=== PATIENT | female | born 1985 | race American Indian/Alaskan Native ===

== ENCOUNTER 2017-01-06 13:21 | Inpatient (IN) | payer MEDICAID ==
[2017-01-06] MEDS ORDERED: STADOL IV PRN (13:30)
[2017-01-06] MEDS ORDERED: BRETHINE SUB-Q PRN (13:30)
[2017-01-06] MEDS ORDERED: BRETHINE IVP PRN (13:30)
[2017-01-06] MEDS ORDERED: MINERAL OIL PO PRN (13:30)
[2017-01-06] MEDS ORDERED: ePHEDrine SULFATE IV PRN ×2 (13:30→17:23)
[2017-01-06] MEDS ORDERED: SUBLIMAZE IV PRN (13:30)
[2017-01-06] MEDS ORDERED: LACTATED RINGERS 1,000 ML IV SCH (14:00)
[2017-01-06 14:20] LABS: Hematocrit 36.5 % (30.3-42.9); Hemoglobin 11.8 gm/dl (10.1-14.3); Mean Corpuscular HGB Conc 32 % (30-34); Mean Corpuscular Hemoglobin 27 pg (28-32); Mean Corpuscular Volume 84 fl (79-97); Platelet Count 137 K/mm3 (140-440); Red Blood Count 4.33 M/mm3 (3.65-5.03); Red Cell Distribution Width 14.7 % (13.2-15.2); White Blood Count 10.4 K/mm3 (4.5-11.0)
[2017-01-06] MEDS ORDERED: PITOCin/NS 20 UNIT/1000ML DRIP 20 UNITS/1,000 ML BAG IV SCH (16:00)
[2017-01-06] MEDS ORDERED: PITOCin/NS 30 UNIT/500ML 30 UNITS/500 ML BAG IV SCH ×2 (16:00)
[2017-01-06] MEDS ORDERED: NARCAN 2 MG/2 ML IV PRN (17:16)
--- NOTE | 2017-01-06 17:16 | Anesthesia Consultation ---
Anesthesia Consult and Med Hx Date of service: 01/06/17 - Airway Anesthetic Teeth Evaluation: Good ROM Head & Neck: Adequate Mental/Hyoid Distance: Adequate Mallampati Class: Class II Intubation Access Assessment: Good - Pulmonary Exam CTA: Yes - Cardiac Exam Cardiac Exam: No Murmur - Pre-Operative Health Status ASA Pre-Surgery Classification: ASA2 Proposed Anesthetic Plan: Epidural - Pulmonary Hx Asthma: No COPD: No Hx Pneumonia: No - Cardiovascular System Hx Hypertension: No - Central Nervous System Hx Seizures: No Hx Psychiatric Problems: No - Endocrine Hx Renal Disease: No Hx End Stage Renal Disease: No Hx Hypothyroidism: No Hx Hyperthyroidism: No - Hematic Hx Anemia: No Hx Sickle Cell Disease: No - Other Systems Hx Alcohol Use: No
[2017-01-06] MEDS ORDERED: fentaNYL-BUPIV 2 MCG/ML-0.125% 200 MCG/100 ML BAG EPIDURAL SCH (18:00)
--- NOTE | 2017-01-06 19:06 | History and Physical Report ---
History of Present Illness Date of examination: 01/06/17 Date of admission: 01/06/17 13:56 Chief complaint: rupture of membranes History of present illness: Pt is a 31 year old HETAL 01/21/17 at 37w6d who presents with spontaneous rupture of membranes at 1230 pm today. She reports irregular contractions and denies vaginal bleeding. She has had care at [facility] since 11 wks complicated by obesity, poorly controlled gestational diabetes on glyburide 5 mg BID,and elevated Down Syndrome risk with normal NIPT. She is GBS negative. Past History Past Medical History: diabetes (gestational diabetes ) Past Surgical History: cholecystectomy Family/Genetic History: none Social history: no significant social history, - Obstetrical History Expected Date of Delivery: 01/21/17 Actual Gestation: 37 Week(s) 6 Day(s) : 2 Para: 1 Hx # Term Pregnancies: 1 Number of Pregnancies: 0 Spontaneous Abortions: 0 Induced : 0 Number of Living Children: 1 Medications and Allergies Allergies Allergy/AdvReac Type Severity Reaction Status Date / Time No Known Allergies Allergy Unverified 01/06/17 15:12 Active Meds: Active Medications Butorphanol Tartrate (Stadol) 2 mg IV Q2H PRN PRN Reason: Pain , Severe (7-10) Ephedrine Sulfate (Ephedrine Sulfate) 10 mg IV Q2M PRN PRN Reason: Hypotension Stop: 01/07/17 13:29 Fentanyl (Sublimaze) 100 mcg IV Q2H PRN PRN Reason: Labor Pain Lactated Ringer's (Lactated Ringers) 1,000 mls @ 125 mls/hr IV DIRECT DOUGLAS Oxytocin/Sodium Chloride (Pitocin/Ns 20 Unit/1000ml Drip) 20 units in 1,000 mls @ 125 mls/hr IV DIRECT DOUGLAS Oxytocin/Sodium Chloride (Pitocin/Ns 30 Unit/500ml) 30 units in 500 mls @ 0 mls /hr IV TITR DOUGLAS PRN Reason: Protocol Oxytocin/Sodium Chloride (Pitocin/Ns 30 Unit/500ml) 30 units in 500 mls @ 1 mls /hr IV TITR DOUGLAS; 1 MILLIUNITS/MIN PRN Reason: Protocol Last Titration: 01/06/17 18:30 Dose: 16 milliunits/min, 16 mls/hr Fentanyl/Bupivacaine/Sodium Chlor (Fentanyl-Bupiv 2 Mcg/Ml-0.125%) 200 mcg in 100 mls @ 12 mls/hr EPIDURAL TITR DOUGLAS PRN Reason: Protocol Mineral Oil (Mineral Oil) 30 ml PO QHS PRN PRN Reason: Constipation Review of Systems All systems: negative - Vital Signs Vital signs: Vital Signs Pulse BP 93 H 115/72 01/06/17 13:45 01/06/17 13:45 Temp Pulse Resp BP Pulse Ox 97.8 F 88 18 128/58 100 01/06/17 15:14 01/06/17 18:59 01/06/17 15:14 01/06/17 18:55 01/06/17 18:59 - Physical Exam Breasts: Positive: deferred Cardiovascular: Regular rate Abdomen: Positive: soft (obese, gravid ). Negative: tenderness Uterus: Positive: enlarged (gravid ) Extremities: Positive: normal - Obstetrical FHR: category 2 Uterine Contraction Monitor Mode: External Cervical Dilatation: 10 Cervical Effacement Percentage: 100 station: -1 Uterine Contraction Pattern: Irregular Uterine Tone Measurement Phase: Resting Uterine Contraction Intensity: Moderate Results Result Diagrams: 01/06/17 13:56 Abnormal lab results 01/06/17 Range/Units 13:56 MCH 27 L (28-32) pg Plt Count 137 L (140-440) K/mm3 All other labs normal. Assessment and Plan A: IUP at 37w6d Gestational Diabetes A2, poorly controlled PROM Second stage labor Thrombocytopenia Obesity GBS negative P: Admit to labor and delivery. Accuchek q 1 hr Continue pitocin augmentation. Closely monitor maternal and status.
--- NOTE | 2017-01-06 20:35 | Procedure Note ---
OB Delivery Note - Delivery Date of Delivery: 01/06/17 Surgeon: BELLA ZEPEDA Estimated blood loss: 300cc - Vaginal Delivery presentation: vertex Delivery position: OA Intrapartum events: PROM->1hr before delivery, decreased FHT variability, mult.variable deceleratio Delivery induction: oxytocin Delivery augmentation: pitocin Delivery monitor: external FHT, external uterine Route of delivery: Delivery placenta: spontaneous Delivery cord: 3 umbilical vessels Episiotomy: none Delivery laceration: none Anesthesia: epidural Delivery comments: She progressed to complete/complete/+2 and patient delivered a viable female via over intact perineum under epidural anesthesia. Head delivered in the ABRAHAM position. Loose nuchal cord was reduced 1. Shoulders delivered in Mari position with suprapubic pressure due to poor maternal pushing effort. Body cord 1. placed on maternal abdomen and bulb suctioned. Cord clamped and cut. Cord blood collected. Placenta delivered spontaneously ( 3 vessel cord, intact). Vagina and perineum explored. No lacerations noted. Estimated blood loss 300 mL. - A at 1 minute: 8 at 5 minutes: 9 Gender: Female (3818g (8lb 7 oz))
[2017-01-07] MEDS ORDERED: BENADRYL PO PRN (02:38)
[2017-01-07] MEDS ORDERED: DULCOLAX PR PRN (02:38)
[2017-01-07] MEDS ORDERED: TYLENOL PO PRN (02:38)
[2017-01-07] MEDS ORDERED: TUCKS PAD TP PRN (02:38)
[2017-01-07] MEDS ORDERED: PITOCin/NS 20 UNIT/1000ML DRIP 20 UNIT/1,000 ML BAG IV SCH (02:38)
[2017-01-07] MEDS ORDERED: MILK OF MAGNESIA PO PRN (02:38)
[2017-01-07] MEDS ORDERED: PHENERGAN PR PRN (02:38)
[2017-01-07] MEDS ORDERED: NORCO 5/325 PO PRN (02:38)
[2017-01-07] MEDS ORDERED: ZOFRAN IV PRN (02:38)
[2017-01-07] MEDS ORDERED: SODIUM CHLORIDE FLUSH SYRINGE 10 ML IV PRN (02:38)
[2017-01-07] MEDS ORDERED: DERMOPLAST TP PRN (02:38)
[2017-01-07] MEDS ORDERED: LANSINOH TP PRN (02:38)
[2017-01-07] MEDS ORDERED: PHENERGAN PO PRN (02:38)
[2017-01-07] MEDS: MOTRIN PO SCH ×3 (05:38→21:15)
[2017-01-07 07:56] LABS: Hematocrit 29.1 % (30.3-42.9); Hemoglobin 9.3 gm/dl (10.1-14.3)
--- NOTE | 2017-01-07 08:21 | Progress Note ---
Assessment and Plan OL VSS AF PP H/H: 9.3/29.1 Random BD WNL A: Stable PP Day 1 Anemia Gestational Diabetes P: Iron as ordered Continue PP orders Subjective - Subjective Date of service: 01/07/17 Patient reports: appetite normal, voiding normally, pain well controlled, flatus , ambulating normally : doing well Objective - Vital Signs Latest vital signs: Vital Signs Temp Pulse Pulse Resp BP BP Pulse Ox 01/07/17 05:20 98 F 70 22 120/65 01/07/17 00:35 98.4 F 98 H 20 110/52 01/06/17 22:10 106 H 114/56 01/06/17 21:56 110 H 124/69 01/06/17 21:40 100 H 107/51 01/06/17 21:25 90 129/58 01/06/17 21:10 81 121/60 01/06/17 20:55 93 H 124/59 01/06/17 20:40 100 H 115/77 01/06/17 20:29 101 H 98 01/06/17 20:28 104 H 90 01/06/17 20:25 94 H 113/55 01/06/17 20:24 90 98 01/06/17 20:19 87 98 01/06/17 20:14 93 H 99 01/06/17 20:12 130 H 109/58 01/06/17 20:09 149 H 99 01/06/17 20:04 122 H 100 01/06/17 19:55 88 126/75 01/06/17 19:49 110 H 100 01/06/17 19:44 109 H 100 01/06/17 19:43 104 H 183/94 69 L 01/06/17 19:39 109 H 100 01/06/17 19:34 99 H 100 01/06/17 19:29 100 H 99 01/06/17 19:25 100 H 129/65 01/06/17 19:24 100 H 100 01/06/17 19:19 92 H 100 01/06/17 19:14 92 H 99 01/06/17 19:10 90 125/58 01/06/17 19:09 89 100 01/06/17 19:04 97 H 100 01/06/17 18:59 88 100 01/06/17 18:55 100 H 128/58 01/06/17 18:54 89 100 01/06/17 18:49 105 H 100 01/06/17 18:44 89 92 01/06/17 18:41 83 130/97 01/06/17 18:38 79 100 01/06/17 18:33 81 100 01/06/17 18:28 84 100 01/06/17 18:25 81 103/50 01/06/17 18:23 77 100 01/06/17 18:18 85 100 01/06/17 18:13 79 100 01/06/17 18:11 105 H 108/51 01/06/17 18:08 77 100 01/06/17 18:03 86 100 01/06/17 17:58 82 100 01/06/17 17:55 78 103/53 01/06/17 17:53 94 H 100 01/06/17 17:48 90 100 01/06/17 17:43 90 100 01/06/17 17:40 85 105/53 01/06/17 17:38 84 100 01/06/17 17:33 80 100 01/06/17 17:28 103 H 100 01/06/17 17:25 98 H 105/50 01/06/17 17:23 102 H 100 01/06/17 17:18 93 H 99 01/06/17 17:13 84 99 01/06/17 17:11 93 H 102/52 01/06/17 17:08 104 H 99 01/06/17 17:03 119 H 100 01/06/17 17:02 113 H 127/58 01/06/17 17:01 79 91 01/06/17 16:58 98 H 100 01/06/17 16:53 83 100 01/06/17 16:50 83 128/58 01/06/17 16:48 83 99 01/06/17 15:14 97.8 F 18 01/06/17 14:41 88 111/64 01/06/17 13:45 93 H 115/72 Intake and Output 01/06/17 01/07/17 01/07/17 22:59 06:59 14:59 Intake Total 250 Output Total 500 250 Balance -500 0 Intake: IV 250 PITOCin/NS 20 UNIT/1000ML 250 DRIP 20 units In 1,000 ml @ 125 mls/hr IV DIRECT DOUGLAS Rx#:[id number] Output: Urine 500 250 Indwelling Catheter 500 250 Other: Total, Output Amount 500 250 Weight 85.729 kg Estimated Blood Loss 300 - Exam Lungs: Present: Normal air movement Abdomen: Present: normal appearance, soft, normal bowel sounds. Absent: distention, tenderness Vulva: both: normal Uterus: Present: normal, firm, fundal height below umbilicus. Absent: bogginess , tenderness Extremities: Present: normal, edema - Labs Labs: Abnormal lab results 01/06/17 01/06/17 01/07/17 Range/Units 13:56 19:19 06:11 Hgb (10.1-14.3) gm/dl Hct (30.3-42.9) % MCH 27 L (28-32) pg Plt Count 137 L (140-440) K/mm3 POC Glucose 46 L 129 H (70-105) 01/07/17 Range/Units 07:40 Hgb 9.3 L (10.1-14.3) gm/dl Hct 29.1 L D (30.3-42.9) % MCH (28-32) pg Plt Count (140-440) K/mm3 POC Glucose (70-105)
[2017-01-07] MEDS: FEOSOL PO SCH ×2 (15:43→21:15)
[2017-01-07] MEDS: PRENATAL VITAMIN PO SCH (15:45)
--- NOTE | 2017-01-07 17:06 | Progress Note ---
Subjective Date of service: 01/07/17 Interval history: 1st day after normal vaginal delivery Patient is in the bed, relatively comfortable. Pain is mostly controlled with pain meds. No nausea or vomiting. Ambulated well. No residual neurological deficit. No anesthesia complications Objective - Constitutional Vitals: Vital Signs - 12hr 01/07/17 01/07/17 01/07/17 05:20 08:38 17:05 Temperature 98 F 97.8 F 98.1 F Pulse Rate [ 70 88 84 Left] Respiratory 22 18 20 Rate Blood Pressure 120/65 108/64 119/69 [Right Arm] - Labs CBC & Chem 7: 01/07/17 07:40 Labs: Abnormal lab results 01/06/17 01/07/17 01/07/17 Range/Units 19:19 06:11 07:40 Hgb 9.3 L (10.1-14.3) gm/dl Hct 29.1 L D (30.3-42.9) % POC Glucose 46 L 129 H (70-105)
[2017-01-07] MEDS ORDERED: M-M-R II VACCINE SUB-Q ONE (20:37)
[2017-01-08] MEDS ORDERED: BOOSTRIX IM ONE (06:00)
--- NOTE | 2017-01-08 08:35 | Discharge Summary ---
Providers - Providers Date of Admission: 01/06/17 13:56 Date of discharge: 01/08/17 Attending physician: BELLA ZEPEDA 01/07/17 02:38 Consult to Retail Financial Analyst [CONS] Routine Reason For Exam: assistance with , SNS Primary care physician: BELLA ZEPEDA Hospitalization Reason for admission: active labor Delivery: Episiotomy: none Laceration: none Incision: normal, dry, intact Other procedures: none complications: none Discharge diagnosis: IUP at term delivered baby: female Condition at discharge: Good Disposition: DISCHARGED TO HOME OR SELFCARE Plan - Provider Discharge Summary Activity: routine, no sex for 6 weeks, no heavy lifting 4 weeks, no strenuous exercise Diet: routine Instructions: routine (Anemia GDM bottle feeding desires tubal ligation) Additional instructions: [] Smoking cessation referral if applicable(refer to patient education folder for contact #) [] Refer to [facility] Booklet Call your doctor immediately for: * Fever > 100.5 * Heavy vaginal bleeding ( >1 pad per hour) * Severe persistent headache * Shortness of breath * Reddened, hot, painful area to leg or breast * Drainage or odor from incision. * Keep incision clean and dry at all times and follow doctor's instructions regarding bathing/showering - Follow up plan Follow up: BELLA ZEPEDA MD [Primary Care Provider] - 7 Days
--- NOTE | 2017-01-08 08:38 | Progress Note ---
Assessment and Plan A/P PPD#2 s/P H/H 9.9/29.1 on iron BID AB+ no rhogam indicated tubal for contraception desires female f/u in 4 weeks D/C home with precautions and instructions Subjective - Subjective Date of service: 01/08/17 Principal diagnosis: PPD#2 Patient reports: appetite normal, voiding normally, pain well controlled, flatus , bowel movement, ambulating normally [place]: doing well, bottle feeding Objective - Vital Signs Latest vital signs: Vital Signs Temp Pulse Resp BP 01/08/17 00:00 98.6 F 76 20 122/76 01/07/17 17:05 98.1 F 84 20 119/69 01/07/17 16:42 20 01/07/17 08:38 97.8 F 88 18 108/64 Intake and Output 01/07/17 01/08/17 01/08/17 22:59 06:59 14:59 Intake Total 600 360 Balance 600 360 Intake: Oral 600 360 Other: Total, Intake Amount 240 120 # Voids Void 1 1 - Exam Breasts: Present: normal Cardiovascular: Present: Regular rate, Normal S1, Normal S2 Lungs: Present: Clear to auscultation, Normal air movement Abdomen: Present: normal appearance, soft, normal bowel sounds. Absent: distention, tenderness Vulva: both: normal Uterus: Present: normal, firm, fundal height below umbilicus (3cm below) Extremities: Present: normal Deep Tendon Reflex Grade: Normal +2 Incision: Present: normal, dry, intact
[2017-01-08] MEDS: PRENATAL VITAMIN PO SCH (10:15)
[2017-01-08] MEDS: FEOSOL PO SCH (10:15)
[2017-01-08] MEDS: MOTRIN PO SCH (10:41)
[2017-01-08 13:16] VITALS: BP 126/74
== END 2017-01-08 13:20 | disposition home or self-care (01) | DRG 775 ==
LOC: TRG 13:21 → LD 13:56 → OB 23:05
PROVIDERS: ADMIT Obstetrics & Gynecology; ATTEND Obstetrics & Gynecology
PROC: 10E0XZZ Delivery of Products of Conception, External Approach (ICD-10-PCS; principal; 2017-01-06)
PROC: 3E033VJ Introduction of Other Hormone into Peripheral Vein, Percutaneous Approach (ICD-10-PCS; 2017-01-06)
PROC: 3E0S3CZ (ICD-10-PCS; 2017-01-06)
PROC: 00HU33Z Insertion of Infusion Device into Spinal Canal, Percutaneous Approach (ICD-10-PCS; 2017-01-06)
DX: O42.02 Full-term premature rupture of membranes, onset of labor within 24 hours of rupture (principal); O99.12 Other diseases of the blood and blood-forming organs and certain disorders involving the immune mechanism complicating childbirth; O24.429 Gestational diabetes mellitus in childbirth, unspecified control; Z37.0 Single live birth; Z3A.37 37 weeks gestation of pregnancy; O99.214 Obesity complicating childbirth; E66.9 Obesity, unspecified; Z68.33 Body mass index [BMI] 33.0-33.9, adult; D69.6 Thrombocytopenia, unspecified; O99.02 Anemia complicating childbirth; D64.9 Anemia, unspecified; Z90.49 Acquired absence of other specified parts of digestive tract; O76 Abnormality in fetal heart rate and rhythm complicating labor and delivery; O69.81X0 Labor and delivery complicated by cord around neck, without compression, not applicable or unspecified
CPT/HCPCS: 36415; 82962; 85014; 85018; 85027; 86850; 86900; 86901; 88307; J2590; J7120

== ENCOUNTER 2017-02-25 05:45 | Day surgery (SDC) | payer MEDICAID ==
[2017-02-25] MEDS ORDERED: PEPCID PO NR (06:00)
[2017-02-25] MEDS ORDERED: NACL 0.9% 1000 ML 1,000 ML IV SCH (06:00)
[2017-02-25] MEDS ORDERED: VERSED IV NR (06:00)
[2017-02-25] MEDS ORDERED: NACL BACTERIOSTATIC INFILTRATI ONE (06:21)
--- NOTE | 2017-02-25 06:39 | Anesthesia Day of Surgery ---
Anesthesia Day of Surgery - Day of Surgery Patient Examined: Yes Patient H&P Reviewed: Yes Patient is NPO: Yes
--- NOTE | 2017-02-25 06:39 | Anesthesia Consultation ---
Anesthesia Consult and Med Hx Date of service: 02/25/17 - Airway Anesthetic Teeth Evaluation: Good ROM Head & Neck: Adequate Mental/Hyoid Distance: Adequate Mallampati Class: Class I Intubation Access Assessment: Good - Pulmonary Exam CTA: Yes - Cardiac Exam Cardiac Exam: RRR - Pre-Operative Health Status ASA Pre-Surgery Classification: ASA1 Proposed Anesthetic Plan: General - Pulmonary Hx Asthma: No COPD: No Hx Pneumonia: No - Cardiovascular System Hx Hypertension: No - Central Nervous System Hx Seizures: No Hx Psychiatric Problems: No - Endocrine Hx Renal Disease: No Hx End Stage Renal Disease: No Hx Hypothyroidism: No Hx Hyperthyroidism: No - Hematic Hx Anemia: No Hx Sickle Cell Disease: No - Other Systems Hx Alcohol Use: Yes (occas) Hx Cancer: No
[2017-02-25] MEDS ORDERED: ZOFRAN IV PRN (06:58)
[2017-02-25] MEDS ORDERED: NORCO 5/325 PO PRN (06:58)
[2017-02-25] MEDS ORDERED: DECADRON ONE (06:59)
[2017-02-25] MEDS ORDERED: XYLOCAINE MPF 2% ONE (06:59)
[2017-02-25] MEDS ORDERED: ZEMURON IV ONE (06:59)
[2017-02-25] MEDS ORDERED: DIPRIVAN 10 MG/ML IV ONE (06:59)
[2017-02-25] MEDS ORDERED: MARCAINE 0.5% 30 ML INFILTRATI ONE (07:16)
[2017-02-25] MEDS ORDERED: NACL 0.9% IR ONE (07:52)
[2017-02-25] MEDS ORDERED: MARCAINE 0.5% INFILTRATI ONE (08:08)
[2017-02-25] MEDS ORDERED: SILVER NITRATE TP ONE ×2 (08:11→08:21)
[2017-02-25] MEDS ORDERED: MONSEL'S TP ONE ×2 (08:13→08:21)
[2017-02-25] MEDS ORDERED: ROBINUL ONE (08:28)
[2017-02-25] MEDS ORDERED: NEOSTIGMINE ONE (08:28)
[2017-02-25] MEDS ORDERED: TORADOL IV ONE (08:50)
[2017-02-25] MEDS: DILAUDID IV PRN ×2 (08:55→09:05)
--- NOTE | 2017-02-25 08:56 | Discharge Summary ---
Providers - Providers Date of discharge: 02/25/17 Attending physician: BOBBY SCHAFFER MD Primary care physician: BELLA ZEPEDA Hospitalization Reason for admission: other Procedure: bilateral tubal ligation Episiotomy: none Laceration: none Incision: normal, dry, intact Other procedures: none Condition at discharge: Good Disposition: DISCHARGED TO HOME OR SELFCARE Plan - Discharge Medications Prescriptions: Ibuprofen [Motrin] 600 mg PO Q8H PRN #30 tablet PRN Reason: Pain oxyCODONE /ACETAMINOPHEN [Percocet 5/325] 1 tab PO Q6HR PRN #30 tablet PRN Reason: Pain - Provider Discharge Summary Activity: no heavy lifting 4 weeks Diet: routine Instructions: routine Additional instructions: [] Smoking cessation referral if applicable(refer to patient education folder for contact #) [] Refer to [facility] Booklet Call your doctor immediately for: * Fever > 100.5 * Heavy vaginal bleeding ( >1 pad per hour) * Severe persistent headache * Shortness of breath * Reddened, hot, painful area to leg or breast * Drainage or odor from incision. * Keep incision clean and dry at all times and follow doctor's instructions regarding bathing/showering - Follow up plan Follow up: BOBBY SCHAFFER MD [Staff Physician] - 14 Days
--- NOTE | 2017-02-25 09:03 | Operative Report ---
Operative Report Operative Report: Description: Laparoscopic bilateral tubal ligation with Filshe clips DIAGNOSIS: Multiparous female, desires permanent sterilization. NAME OF OPERATION: Laparoscopic bilateral tubal ligation with Filshe clips ANESTHESIA: General, ET tube. COMPLICATIONS: None. FINDINGS: Normal female anatomy normal uterus nl tubes b/l PROCEDURE: The patient was taken to the operating room and placed on the table in the supine position. After adequate general anesthesia was obtained, she was placed in the lithotomy position and examined. She was found to have an anteverted uterus and no adnexal mass. She was prepped and draped in the usual fashion. The straight catheter was placed. A uterine manipulator was inserted into the cervix and attached to the anterior lip of the cervix. An infraumbilical incision was made with the knife. A Veress needle was inserted into the abdomen. Intraperitoneal location was verified with approximately 10 cc of sterile solution. A pneumoperitoneum was created. The Veress needle was then removed, and a trocar was inserted directly without difficulty. Intraperitoneal location was verified visually with the laparoscope. There was no evidence of any intra-abdominal trauma. Each fallopian tube was elevated and filsche clip applicator, and a Filsche clip was placed on each tube with verification of of entire side of each tube covered. The pneumoperitoneum was evacuated, and the trocar was removed under direct visualization. An attempt was made to close the fascia with a [id number] suture.. The skin was closed with glue , and the patient was taken to the recovery room awake with vital signs stable.
--- NOTE | 2017-02-25 09:17 | Post Anesthesia Evaluation ---
- Post Anesthesia Evaluation Patient Participated: Yes Airway Patent: Yes Stable Respiratory Function: Yes Temp > 96.8F: Yes Pain Manageable: Yes Adequeate Hydration: Yes Anesthesia Complications: No Block Receding Appropriately: Not Applicable
[2017-02-25 10:15] VITALS: BP 122/78
== END 2017-02-25 10:50 | disposition home or self-care (01) ==
LOC: OR 05:45
PROVIDERS: ATTEND Obstetrics & Gynecology
DX: Z30.2 Encounter for sterilization (principal); Z72.89 Other problems related to lifestyle
CPT/HCPCS: 36415; 58671; 81025; 85014; 85018; J1100; J1170; J1885; J2250; J2405; J2704; J2710; J7030